=== PATIENT | female | born 1990 | race Hispanic/Latino ===

== ENCOUNTER 2025-03-08 09:27 | Emergency (ER) | payer OTHER, SELFPAY ==
[2025-03-08 09:36] VITALS: BP 127/88
--- NOTE | 2025-03-08 11:42 | ED.GENMED ---
History of Present Illness
General
Chief Complaint: Musculo-Skeletal Complaint
Time Seen by Provider: 03/08/25 11:15
History of Present Illness
History of Present Illness:
Patient is a 34-year-old woman with history of asthma recently started faserna injections, diabetes that has been difficult to manage presenting to the emergency department with numbness tingling to her right lower extremity. Patient states that
she woke up this morning and developed tingling from her right knee to her toes. She tried walking it off. Intermittently the tingling would only be to her foot. No weakness. No difficulty walking. No speech changes. Has never happened to her
before. Denies any back pain urinary incontinence or saddle anesthesia. No recent traumatic events. No leg swelling. No prior history of CVA.
Past History
Past History
ED Past Medical History: None
ED Past Surgical History: None
Phy Exam
Physical Exam
Physical Exam:
GENERAL: in no acute distress
HEENT: normocephalic, extraocular movements intact, moist oral mucosa
NECK: normal inspection
RESPIRATORY: no respiratory distress, clear to auscultation bilaterally
CARDIOVASCULAR: regular rate and rhythm
ABDOMEN/: soft, non-distended, non-tender to palpation, no rebound or guarding
EXTREMITIES: non-tender, no edema/swelling
NEUROLOGIC: alert and oriented x 3, cranial nerves II-XII intact, right upper extremity strength 5/5, left upper extremity strength 5/5, right lower extremity strength 5/5, left lower extremity strength 5/5, normal sensation to light touch, normal
ciyogi-ji-sjyd and oard-sm-kmqk, gait not tested formally
SKIN: warm
Course
Orders/Labs/Results
Orders:
Orders
03/08/25 12:17
B12 [Vitamin B12] Urgent
Basic Metabolic Panel Urgent
CRP [C-Reactive Protein] Urgent
Complete Blood Count/With Diff Urgent
ESR [Erythrocyte Sed Rate] Urgent
Folate Urgent
Free T4 Urgent
Lyme PCR, DNA [S] Urgent
Magnesium Urgent
Protein Electrophoresis Reflex [S] Urgent
Thyroid profile [TSH Reflex To Free T4] Urgent
Vitamin B1, Whole Blood [S] Urgent
Abnormal Lab Results
03/08/25
12:17
MCHC 32.6 L g/dL
(33.0-37.0)
MPV 10.8 H fL
(7.4-10.4)
Abs Immat Gran (auto) 0.1 H 10^3/uL
(0-0.05)
Lymphocytes % 18.6 L %
(20.5-51.1)
Eosinophils % 7.4 H %
(0-6)
ESR 23 H mm/hour
(0-20)
Chloride 108 H mmol/L
(98-107)
Glucose 110 H mg/dl
(70-99)
Magnesium 2.4 H mg/dl
(1.6-2.3)
C-Reactive Protein 22.80 H mg/L
(0.0-10.00)
TSH (Reflex) 0.02 L uIU/ml
(0.47-4.68)
Free T4 3.19 H ng/dl
(0.78-2.19)
03/08/25 12:17
03/08/25 12:17
Vital Signs
Initial and Last Documented VS:
Initial Vital Signs
Temp Pulse Resp BP Pulse Ox
98.5 F 101 16 127/88 97
03/08/25 09:36 03/08/25 09:36 03/08/25 09:36 03/08/25 09:36 03/08/25 09:36
Last Documented Vital Signs
Temp Pulse Resp BP Pulse Ox
98.5 F 101 16 127/88 97
03/08/25 09:36 03/08/25 09:36 03/08/25 09:36 03/08/25 09:36 03/08/25 09:36
MDM/Problems Addressed
Differential Diagnosis Includes:
Patient is a 34-year-old woman with history of asthma, diabetes presenting to the emergency department with numbness tingling to her right foot that normally goes up to her right knee. Vital signs unremarkable and exam does show no sensory deficits
but she does have some paresthesias. Could be metabolic derangement versus vitamin deficiency. Could be related to her diabetes. For started does have a side effect of possible neuropathy so I did discuss with neurology as patient is supposed to
get higher dose injections this week. Neurology recommends obtaining neuropathy blood work. In agreement with less likely to be TIA/CVA and can hold off on imaging and if ambulatory can discharge after the blood work with further outpatient
evaluation.
*Critical Care Note
Total Time (30-74mins, 75-104mins- exclusive of procedures): Not Applicable
Update Note
Update Note:
Blood work notable for low TSH and elevated free T4. Patient is compliant with her levothyroxine. No additional medications taken. I did discuss with endocrinology who recommended decreasing her levothyroxine to 137 mcg. Patient will follow-up
with her [facility] order management specialist. Will discharge patient with blood results of B12, B1, thiamine and SPEP pending. Patient will follow-up with neurology. Strict return precautions given.
ED Attending Note
-
Portions of this chart may have been created with voice recognition software.� Occasional wrong word or��sound alike� substitutions may have occurred due to the inherent limitations of voice recognition software.
Discharge Plan
Departure
Patient Disposition: Home (Routine Discharge)
Date of Disposition: 03/08/25
Time of Disposition: 14:17
Patient with high blood pressure during this ER visit?: No
Discharge Problem:
Paresthesia of right lower extremity, Low TSH level
Instructions: Peripheral neuropathy
Prescriptions:
New
levothyroxine 137 mcg capsule
137 mcg PO DAILY Qty: 30 0RF
No Action
cetirizine [Zyrtec] 10 MG tablet
10 mg PO HS
verapamil 180 MG tablet extended release
180 mg PO DAILY
famotidine [Acid Controller] 20 MG tablet
20 mg PO DAILY
levothyroxine 150 MCG tablet
150 mcg PO DAILY
insulin aspart U-100 [Novolog FlexPen U-100 Insulin] 300 UNITS/3 ML insulin pen
18 units SC AC
insulin glargine [Lantus Solostar U-100 Insulin] 300 UNITS/3 ML insulin pen
23 units SC HS
albuterol sulfate 1 PUFF HFA aerosol inhaler
2 puff inhalation AMHS
budesonide-formoterol [Symbicort] 1 PUFF HFA aerosol inhaler
2 puff inhalation PRN PRN (Reason: asthma)
labetalol 200 MG tablet
200 mg PO BID Qty: 60 1RF
ondansetron 4 MG tablet,disintegrating
4 mg PO TIDPRN PRN (Reason: nausea) Qty: 12 0RF
Referrals:
Tito Madden DO [Family Provider] -
Anita Murphy MD [Active] -
Activity Restrictions/Additional Instructions:
You were seen in the Emergency Department today for numbness tingling. Please make sure you follow-up with Dr. Maximilian mix from neurology.. While you were here we performed blood work, which was reassuring. However we are still waiting results for
your vitamin B12, B1, protein analysis, Lyme. We did adjust your thyroid medication and decreased it to 137 mcg daily. Please make sure you follow-up with your order management specialist at [facility].
We would like for you to follow up with your primary care physician for further evaluation. If you experience fever, worsening of your symptoms, or develop any other new or concerning symptoms, please return to the Emergency Department immediately.
Please see the attached sheet for additional information.
Discharge Date and Time
Print Language: KOSOVAN
[2025-03-08 12:26] LABS: % Basophils 0.9 % (0-2); % Eosinophils 7.4 % (0-6); % Immature Granulocytes 0.5 % (0-0.5); % Lymphocytes 18.6 % (20.5-51.1); % Monocytes 5.3 % (1.7-9.3); % Neutrophils 67.3 % (42.2-75.2); Absolute Basophils 0.1 10^3/uL (0-0.2); Absolute Eosinophils 0.7 10^3/uL (0-0.7); Absolute Immature Granulocytes 0.1 10^3/uL (0-0.05); Absolute Lymphocytes 1.7 10^3/uL (1.2-3.4); Absolute Monocytes 0.5 10^3/uL (0.1-0.6); Absolute Neutrophils 6.2 10^3/uL (1.4-6.5); Hematocrit 39.9 % (37.0-47.0); Mean Corp Hgb Conc. 32.6 g/dL (33.0-37.0); Mean Corpuscular Hgb 27.4 pg (27.0-31.0); Mean Corpuscular Volume 84.2 fL (81.0-99.0); Mean Platelet Volume 10.8 fL (7.4-10.4); Nucleated Red Blood Cells % 0 %; Platelet Count 284 10^3/uL (130-400); Red Blood Cell Count 4.74 10^6/uL (4.20-5.40); Red Cell Dist. Width 14.1 % (11.5-14.5); White Blood Cell Count 9.1 10^3/uL (4.8-10.8)
[2025-03-08 12:46] LABS: Blood Urea Nitrogen 12 mg/dl (7-17); Calcium 8.7 mg/dl (8.4-10.2); Carbon Dioxide 27 mmol/L (22-30); Chloride 108 mmol/L (98-107); Glucose 110 mg/dl (70-99); Magnesium 2.4 mg/dl (1.6-2.3); Potassium 4.2 mmol/L (3.5-5.1); Sodium 141 mmol/L (135-145); eGFR > 60.00
[2025-03-08 13:19] LABS: Erythrocyte Sed Rate 23 mm/hour (0-20)
[2025-03-08 13:22] LABS: TSH Reflex To Free T4 0.02 uIU/ml (0.47-4.68)
[2025-03-08 13:49] LABS: Free T4 3.19 ng/dl (0.78-2.19)
[2025-03-08 13:58] LABS: Folate 10.4 ng/ml (2.76-20)
[2025-03-08 14:00] VITALS: BP 132/67
[2025-03-08 14:58] LABS: Vitamin B12 246 pg/ml (239-931)
== END 2025-03-08 14:53 | disposition home or self-care (01) ==
LOC: EMR 09:27
PROVIDERS: EMERGENCY PHYSICIAN Student in an Organized Health Care Education/Training Program; FAMILY PHYSICIAN Family Medicine
DX: R20.2 Paresthesia of skin (principal); E11.9 Type 2 diabetes mellitus without complications; J45.909 Unspecified asthma, uncomplicated
CPT/HCPCS: 99283; 80048; 82607; 82746; 83735; 84155; 84165; 84425; 84439; 84443; 85025; 85652; 86140; 87476

== ENCOUNTER 2025-04-29 09:29 | Emergency (ER) | payer OTHER, SELFPAY ==
[2025-04-29 09:34] VITALS: BP 143/90
[2025-04-29 10:00] VITALS: BP 124/78
--- NOTE | 2025-04-29 10:11 | ED.GENMED ---
History of Present Illness
General
Chief Complaint: Abdominal Symptoms
Source: patient
Exam Limitations: none
Time Seen by Provider: 04/29/25 09:57
History of Present Illness
History of Present Illness:
34-year-old female with history of diabetes presents complaining of 6 days worth of abdominal discomfort nausea and vomiting with decreased bowel movements. She also notes chills. The pain is in the center of her abdomen gets worse when she eats
and when she does not eat. She is been trying prune juice to help her have a bowel movement which she has had very minimally. No chest pain or shortness of breath. No known sick contacts. The symptoms remind her of time that she has had food
poisoning. She denies any blood in the stool. No other complaints at this time.
Past History
Past History
ED Past Medical History: None
ED Past Surgical History: None
Phy Exam
Physical Exam
Physical Exam:
General: Well-appearing female no acute respiratory distress HEENT: Normocephalic atraumatic
Heart: Regular rate and rhythm
Lungs: Clear no wheeze
Abdomen is soft tender to the epigastric region no guarding or rebound nondistended no costovertebral angle tenderness
Extremities: No cyanosis
Skin is warm no rash
Course
Orders/Labs/Results
Orders:
Orders
04/29/25 10:09
Diphenhydramine [Benadryl] 50 mg IV NOW STA
Hydrocortisone Sod Succinate [Solu-Cortef] 200 mg IV NOW STA
Test Result ONCE
04/29/25 10:10
CT Abd/pelvis W Iv Cont Urgent
Comment:
Reason For Exam: abdominal pain
Famotidine [Pepcid] 20 mg IV NOW STA
04/29/25 10:12
Complete Blood Count/With Diff Urgent
Comprehensive Metabolic Panel Urgent
HCG, Serum Qualitative Screen Urgent
Lipase Urgent
04/29/25 10:53
HYDROmorphone [Dilaudid] 0.5 mg IV NOW STA
04/29/25 11:00
Dextrose 5%/0.45%Sodchl 500 ml [D5/0.45%NaCl] 500 ml IV 250 mls/hr
04/29/25 11:10
Ondansetron Injectable [Zofran] 4 mg IV NOW STA
Abnormal Lab Results
04/29/25
10:12
MPV 10.8 H fL
(7.4-10.4)
Absolute Neuts (auto) 6.7 H 10^3/uL
(1.4-6.5)
Chloride 108 H mmol/L
(98-107)
Glucose 113 H mg/dl
(70-99)
AST 13 L U/L
(14-36)
04/29/25 10:12
04/29/25 10:12
Vital Signs
Initial and Last Documented VS:
Initial Vital Signs
Temp Pulse Pulse Ox
97.6 F 105 95
04/29/25 09:32 04/29/25 09:32 04/29/25 09:32
Last Documented Vital Signs
Temp Pulse Resp BP Pulse Ox
97.6 F 94 18 119/74 95
04/29/25 09:32 04/29/25 10:00 04/29/25 10:00 04/29/25 13:00 04/29/25 13:00
MDM/Problems Addressed
Differential Diagnosis Includes:
Abdominal pain. Differential could include gastritis or his biliary colic versus pancreatitis. Patient is on Ozempic and most recent dose adjustment was about a month ago. Could be adverse reaction to Ozempic. Also consider constipation. No
prior abdominal surgical history.
Will order fluids and Pepcid. CT pending.
*Pulse Oximetry
SaO2: 95
Patient hypoxic: no
*Critical Care Note
Total Time (30-74mins, 75-104mins- exclusive of procedures): Not Applicable
Update Note
Update Note:
CT of the abdomen pelvis reviewed and is negative for acute intra-abdominal process. Patient's pain likely from gastritis. Will recommend Protonix. Stable for discharge
ED Attending Note
-
Portions of this chart may have been created with voice recognition software.� Occasional wrong word or��sound alike� substitutions may have occurred due to the inherent limitations of voice recognition software.
Discharge Plan
Departure
Patient Disposition: Home (Routine Discharge)
Date of Disposition: 04/29/25
Time of Disposition: 14:32
Patient with high blood pressure during this ER visit?: No
Discharge Problem:
Abdominal pain
Instructions: Abdominal Pain
Prescriptions:
New
pantoprazole [Protonix] 40 mg tablet,delayed release (DR/EC)
40 mg PO DAILY Qty: 30 0RF
No Action
cetirizine [Zyrtec] 10 MG tablet
10 mg PO HS
verapamil 180 MG tablet extended release
360 mg PO DAILY
levothyroxine 150 MCG tablet
137 mcg PO DAILY
insulin aspart U-100 [Novolog FlexPen U-100 Insulin] 300 UNITS/3 ML insulin pen
32 units SC AC
insulin glargine [Lantus Solostar U-100 Insulin] 300 UNITS/3 ML insulin pen
62 units SC HS
albuterol sulfate 1 PUFF HFA aerosol inhaler
2 puff inhalation AMHS
budesonide-formoterol [Symbicort] 1 PUFF HFA aerosol inhaler
2 puff inhalation BID
metformin 500 mg Tablet Extended Release 24 Hr
500 mg PO DAILY
rosuvastatin 10 mg Tablet
10 mg PO DAILY
Referrals:
Tahmina Lyons CRNP [Family Provider, Family Practice]
Activity Restrictions/Additional Instructions:
Drink plenty clear liquids. Eat a bland diet. Use Protonix as directed. Return if worse otherwise follow-up with your doctor
Interventions
Interventions:
*Risk Screen - Suicide Last Done: 04/29/25 09:34
*General Assessment Last Done: 04/29/25 10:37
*Neglect/Abuse Screening Last Done: 04/29/25 10:41
*ED- Fall Risk Assessment Last Done: 04/29/25 10:37
*ED COVID-19 Vaccine History Last Done: 04/29/25 10:37
PS-Ilcbpm-Olxqkumucn Assessment Last Done: 04/29/25 10:37
Discharge Date and Time
Print Language: KOSOVAN
[2025-04-29 10:23] LABS: % Basophils 0.1 % (0-2); % Immature Granulocytes 0.4 % (0-0.5); % Lymphocytes 20.5 % (20.5-51.1); % Monocytes 5.8 % (1.7-9.3); % Neutrophils 73.2 % (42.2-75.2); Absolute Lymphocytes 1.9 10^3/uL (1.2-3.4); Absolute Monocytes 0.5 10^3/uL (0.1-0.6); Absolute Neutrophils 6.7 10^3/uL (1.4-6.5); Hematocrit 37.6 % (37.0-47.0); Hemoglobin 12.6 g/dL (12.0-16.0); Mean Corp Hgb Conc. 33.5 g/dL (33.0-37.0); Mean Corpuscular Hgb 27.5 pg (27.0-31.0); Mean Corpuscular Volume 81.9 fL (81.0-99.0); Mean Platelet Volume 10.8 fL (7.4-10.4); Nucleated Red Blood Cells % 0 %; Platelet Count 291 10^3/uL (130-400); Red Blood Cell Count 4.59 10^6/uL (4.20-5.40); Red Cell Dist. Width 14.4 % (11.5-14.5); White Blood Cell Count 9.2 10^3/uL (4.8-10.8)
[2025-04-29 10:33] LABS: HCG, Serum Qualitative Screen Negative
[2025-04-29] MEDS: PEPCID 20 MG IV (10:33)
[2025-04-29] MEDS: SOLU-CORTEF 200 MG IV (10:33)
[2025-04-29] MEDS: BENADRYL 50 MG IV (10:34)
[2025-04-29] MEDS: D5/0.45%NACL 500 IV (10:34)
[2025-04-29 10:38] LABS: ALT (SGPT) 14 U/L (0-35); AST (SGOT) 13 U/L (14-36); Albumin 4.2 g/dl (3.5-5.0); Alkaline Phosphatase 84 U/L (38-126); Blood Urea Nitrogen 15 mg/dl (7-17); Calcium 8.9 mg/dl (8.4-10.2); Carbon Dioxide 25 mmol/L (22-30); Chloride 108 mmol/L (98-107); Glucose 113 mg/dl (70-99); Lipase 85 U/L (23-300); Potassium 3.7 mmol/L (3.5-5.1); Sodium 142 mmol/L (135-145); Total Bilirubin 0.5 mg/dl (0.2-1.3); Total Protein 7.1 g/dl (6.3-8.2); eGFR > 60.00
[2025-04-29] MEDS: DILAUDID 0.5 MG IV (10:59)
[2025-04-29 11:00] VITALS: BP 140/102
[2025-04-29] MEDS: ZOFRAN 4 MG IV (11:14)
[2025-04-29 12:10] VITALS: BP 114/72
[2025-04-29 13:00] VITALS: BP 119/74
[2025-04-29] MEDS: D5/0.45%NACL IV (13:10)
[2025-04-29 14:00] VITALS: BP 118/68
== END 2025-04-29 15:13 | disposition home or self-care (01) ==
LOC: EMR 09:29
PROVIDERS: Physician Assistant; EMERGENCY PHYSICIAN Emergency Medicine; FAMILY PHYSICIAN Registered Nurse
DX: R10.9 Unspecified abdominal pain (principal); R11.2 Nausea with vomiting, unspecified; E11.9 Type 2 diabetes mellitus without complications; Z79.85 Long-term (current) use of injectable non-insulin antidiabetic drugs
CPT/HCPCS: 96374; 96375; 99284; 74177; 80053; 83690; 84703; 85025; Q9967

== ENCOUNTER 2025-04-30 07:57 | Emergency (ER) | payer OTHER, SELFPAY ==
[2025-04-30 07:59] VITALS: BP 153/97
--- NOTE | 2025-04-30 08:47 | ED.GENMED ---
History of Present Illness
General
Chief Complaint: Abdominal Pain
Source: patient
Exam Limitations: none
Time Seen by Provider: 04/30/25 08:02
Nursing documentation reviewed up to this point in time: agreed with
History of Present Illness
History of Present Illness:
The patient is a 34-year-old female who comes in with complaints of several days of left upper abdominal pain and nausea and vomiting. Patient was evaluated in the emergency department yesterday and underwent a CAT scan as well as lab work.
Patient returns because she states that she is still having some vomiting. Patient denies fevers and chills. She reports she had a bowel movement 2 days ago. Patient denies any blood in the vomit. She denies headache and skin rash. Patient
reports she was unable to fill the prescription for the Protonix because her pharmacy does not accept electronic prescriptions.
Past History
Past History
ED Past Medical History: NIDDM
ED Past Surgical History:
Social History
Tobacco: Non-smoker
Alcohol: Other
Drug: None
Personal: Other
Living: with family
Employment: Other
Family History
Family History: Other
Review of Systems
Review of Systems
Allergies reviewed?: Yes
All Other Systems: ROS reviewed and negative except as documented in HPI and ROS
Constitutional: Reports no symptoms
EENT: Reports no symptoms
Respiratory: Reports no symptoms
Cardiac: Reports no symptoms
ABD/GI: Reports abdominal pain, nausea and vomiting
: Reports no symptoms
Musculoskeletal: Reports no symptoms
Skin: Reports no symptoms
Neurological: Reports no symptoms
Endocrine: Reports no symptoms
Hematologic/Lymphatic: Reports no symptoms
Psychiatric: Reports no symptoms
Phy Exam
Physical Exam
Physical Exam:
Physical Exam
General: no apparent distress, not acutely ill
Neck: supple. no meningeal signs. normal psoterior pharynx
Heart: s1/s2 regular rate and rhythm, no murmur. equal radial pulses.
Lungs: no acute respiratory distress. clear bilaterally
Abdomen: Soft, normal bowel sounds. Mildly distended. Mild left upper quadrant tenderness without rebound or guarding. No pulsatile mass
Neuro: alert and oriented. no focal neurological deficits
Skin: no rash
Psychiatric: well kept. interactive and cooperative
Extremities: no edema. no calf tenderness. negative homans. good distal pulses
Course
Orders/Labs/Results
Orders:
Orders
04/30/25 08:59
0.9% Sodium Chloride 1000 ml [Nss] 1,000 ml IV BOLUS
Ondansetron Injectable [Zofran] 4 mg IV NOW STA
04/30/25 09:00
Obstruct Series W/PA Chest [CR Obstruct Series W/pa Chest] Urgent
Comment:
Reason For Exam: abdominal pain
04/30/25 09:30
Complete Blood Count/With Diff Urgent
Comprehensive Metabolic Panel Urgent
Lipase Urgent
04/30/25 09:55
Mag Hydrox/Al Hydrox/Simeth [Maalox] 30 ml .ROUTE .STK-MED ONE
Phenobarb/Hyoscy/Atropine/Scop [] 10 ml .ROUTE .STK-MED ONE
04/30/25 09:56
Viscous Lidocaine 2% [Xylocaine Viscous Cup] 15 ml .ROUTE .STK-MED ONE
04/30/25 09:57
Mag Hydrox/Al Hydrox/Simeth [Maalox] 30 ml Phenobarb/Hyoscy/Atropine/Scop [] 10 ml Viscous Lidocaine 2% [Xylocaine Viscous Cup] 10 ml PO NOW
04/30/25 13:20
Morphine Sulfate 2 mg IV NOW STA
04/30/25 13:22
Mag Hydrox/Al Hydrox/Simeth [Maalox] 30 ml Phenobarb/Hyoscy/Atropine/Scop [] 10 ml Viscous Lidocaine 2% [Xylocaine Viscous Cup] 10 ml PO NOW
Abnormal Lab Results
04/30/25
09:30
Hct 36.9 L %
(37.0-47.0)
MPV 10.5 H fL
(7.4-10.4)
Absolute Neuts (auto) 7.1 H 10^3/uL
(1.4-6.5)
Neutrophils % 79.7 H %
(42.2-75.2)
Lymphocytes % 15.1 L %
(20.5-51.1)
BUN 19 H mg/dl
(7-17)
Glucose 255 H mg/dl
(70-99)
04/30/25 09:30
04/30/25 09:30
Vital Signs
Initial and Last Documented VS:
Initial Vital Signs
Temp Pulse Resp BP Pulse Ox
98.4 F 89 18 153/97 97
04/30/25 07:59 04/30/25 07:59 04/30/25 07:59 04/30/25 07:59 04/30/25 07:59
Last Documented Vital Signs
Temp Pulse Resp BP Pulse Ox
98.4 F 89 18 146/88 97
04/30/25 07:59 04/30/25 07:59 04/30/25 07:59 04/30/25 10:00 04/30/25 10:01
MDM/Problems Addressed
Differential Diagnosis Includes:
Acute gastritis, partial bowel obstruction, constipation, acute cholecystitis, acute pancreatitis
MDM/Problems Addressed:
Patient presents with acute left upper abdominal pain, nausea and vomiting
Chronic conditions affecting care:
Diabetes
Acute Exacerbation and/or Progression of Chronic Illness:
Patient is acutely hyperglycemic but no sign of DKA
*Radiology
Radiology exam reviewed: preliminary read by ED provider (X-ray reviewed by me. No sign of free air or obstruction) and radiology read reviewed
*Pulse Oximetry
SaO2: 97
Oxygen Mode of Delivery: Room air
Patient hypoxic: no
Comment: 97% on room air
*EKG
Interpreted by ED Provider?: NA
*Mobile Ui Designer Interpretation
Rate: normal
Interpretation: normal
Rhythm: sinus
*Critical Care Note
Total Time (30-74mins, 75-104mins- exclusive of procedures): Not Applicable
Data Reviewed
Review of Other/Old Records Reveals: Labs (Labs reviewed from yesterday, 04/29/2025 which showed normal LFTs and lipase) and Radiology Studies (CAT scan reviewed from yesterday which shows no acute disease)
Source: patient
Patient Management
Social determinants of health affecting care: Living situation and Strong social support
Update Note
Update Note:
Patient able to tolerate p.o.'s without nausea and vomiting. Patient's abdomen remains soft
ED Attending Note
-
Portions of this chart may have been created with voice recognition software.� Occasional wrong word or��sound alike� substitutions may have occurred due to the inherent limitations of voice recognition software.
Discharge Plan
Departure
Patient Disposition: Home (Routine Discharge)
Date of Disposition: 04/30/25
Time of Disposition: 12:35
Patient with high blood pressure during this ER visit?: Yes
Condition: Good
Covid-19: Not Applicable
Discharge Problem:
Acute upper abdominal pain, Acute nausea with nonbilious vomiting
Instructions: Acid Reflux and GERD in Adults (DC), [place] Diet, BLOOD PRESSURE, Acute Nausea and Vomiting
Prescriptions:
New
pantoprazole [Protonix] 40 mg tablet,delayed release (DR/EC)
40 mg PO DAILY Qty: 30 0RF
ondansetron 4 mg tablet,disintegrating
4 mg PO TID PRN (Reason: nausea and vomiting) Qty: 14 0RF
sucralfate [Carafate] 100 mg/mL suspension
10 ml PO ACHS 7 Days Qty: 280 0RF
No Action
cetirizine [Zyrtec] 10 MG tablet
10 mg PO HS
verapamil 180 MG tablet extended release
360 mg PO DAILY
levothyroxine 150 MCG tablet
137 mcg PO DAILY
insulin aspart U-100 [Novolog FlexPen U-100 Insulin] 300 UNITS/3 ML insulin pen
32 units SC AC
insulin glargine [Lantus Solostar U-100 Insulin] 300 UNITS/3 ML insulin pen
62 units SC HS
albuterol sulfate 1 PUFF HFA aerosol inhaler
2 puff inhalation AMHS
budesonide-formoterol [Symbicort] 1 PUFF HFA aerosol inhaler
2 puff inhalation BID
metformin 500 mg Tablet Extended Release 24 Hr
500 mg PO DAILY
rosuvastatin 10 mg Tablet
10 mg PO DAILY
pantoprazole [Protonix] 40 mg tablet,delayed release (DR/EC)
40 mg PO DAILY Qty: 30 0RF
Referrals:
Tahmina Lyons CRNP [Family Provider, Family Practice]
Interventions
Interventions:
*Risk Screen - Suicide Last Done: 04/30/25 07:59
*General Assessment Last Done: 04/30/25 07:59
*Neglect/Abuse Screening Last Done: 04/30/25 07:59
*ED COVID-19 Vaccine History Last Done: 04/30/25 10:14
RL-Wdorwr-Neimwxnszn Assessment Last Done: 04/30/25 10:14
Discharge Date and Time
Print Language: TURKISH
[2025-04-30 09:41] LABS: % Basophils 0.1 % (0-2); % Immature Granulocytes 0.3 % (0-0.5); % Lymphocytes 15.1 % (20.5-51.1); % Monocytes 4.8 % (1.7-9.3); % Neutrophils 79.7 % (42.2-75.2); Absolute Lymphocytes 1.4 10^3/uL (1.2-3.4); Absolute Monocytes 0.4 10^3/uL (0.1-0.6); Absolute Neutrophils 7.1 10^3/uL (1.4-6.5); Hematocrit 36.9 % (37.0-47.0); Hemoglobin 12.4 g/dL (12.0-16.0); Mean Corp Hgb Conc. 33.6 g/dL (33.0-37.0); Mean Corpuscular Hgb 27.6 pg (27.0-31.0); Mean Corpuscular Volume 82.2 fL (81.0-99.0); Mean Platelet Volume 10.5 fL (7.4-10.4); Nucleated Red Blood Cells % 0 %; Platelet Count 274 10^3/uL (130-400); Red Blood Cell Count 4.49 10^6/uL (4.20-5.40); Red Cell Dist. Width 14.3 % (11.5-14.5); White Blood Cell Count 8.9 10^3/uL (4.8-10.8)
[2025-04-30] MEDS: ZOFRAN 4 MG IV (09:50)
[2025-04-30] MEDS: NSS 1000 IV (09:50)
[2025-04-30 09:52] VITALS: BP 142/86
[2025-04-30 09:54] LABS: ALT (SGPT) 14 U/L (0-35); AST (SGOT) 15 U/L (14-36); Albumin 4.1 g/dl (3.5-5.0); Alkaline Phosphatase 83 U/L (38-126); Blood Urea Nitrogen 19 mg/dl (7-17); Calcium 8.8 mg/dl (8.4-10.2); Carbon Dioxide 26 mmol/L (22-30); Chloride 107 mmol/L (98-107); Glucose 255 mg/dl (70-99); Lipase 73 U/L (23-300); Potassium 4.1 mmol/L (3.5-5.1); Sodium 140 mmol/L (135-145); Total Bilirubin 0.7 mg/dl (0.2-1.3); Total Protein 6.8 g/dl (6.3-8.2); eGFR > 60.00
[2025-04-30 10:00] VITALS: BP 146/88
[2025-04-30] MEDS: MAALOX 50 PO ×2 (10:00→13:37)
[2025-04-30 13:41] VITALS: BP 142/83
== END 2025-04-30 13:53 | disposition home or self-care (01) ==
LOC: EMR 07:57
PROVIDERS: EMERGENCY PHYSICIAN Emergency Medicine; FAMILY PHYSICIAN Registered Nurse
DX: R10.12 Left upper quadrant pain (principal); E11.65 Type 2 diabetes mellitus with hyperglycemia
CPT/HCPCS: 99283; 96374; 96375; 96361; 74022; 80053; 83690; 85025